=== PATIENT | male | born 1950 | race Caucasian/White ===

== ENCOUNTER 2017-04-15 07:07 | Day surgery (SDC) | payer MEDICARE, BC ==
[2017-04-15] MEDS ORDERED: Propofol 200 MG/20 ML SDV ONE (07:20)
[2017-04-15] MEDS ORDERED: fentaNYL 100 MCG/2 ML SDV ONE (07:20)
[2017-04-15] MEDS ORDERED: Midazolam 1 MG/ML 2 ML SDV ONE (07:21)
[2017-04-15] MEDS ORDERED: Lactated Ringers 1,000 ML IV SCH (07:30)
[2017-04-15 10:29] VITALS: BP 101/67
--- NOTE | 2017-04-15 14:58 | OR ---
DATE OF PROCEDURE: 04/15/2017 PREOPERATIVE DIAGNOSIS: History of colon polyps. POSTOPERATIVE DIAGNOSIS: Diverticulosis, history of colon polyps. PROCEDURE: Colonoscopy to the cecum. ANESTHESIA: IV anesthesia with monitored anesthesia care. INDICATIONS: This 67-year-old white male is referred for a colonoscopy because of a history of multiple colon polyps. His last colonoscopic exam he says was done a year ago. I counseled him for the procedure including risks and alternatives, and he gave his informed consent to proceed. DESCRIPTION OF PROCEDURE: The patient was placed in the left lateral decubitus position. IV anesthesia was administered by the Anesthesia Service. Time-out was held. A rectal exam was performed, which was unremarkable. The flexible video Olympus colonoscope was introduced through his anus, up his rectum, and out his colon all the way to the cecum. Once the cecum was reached, the scope was slowly withdrawn, examining the mucosa throughout. We saw multiple left and sigmoid colon diverticula. There was no bleeding or inflammation associated with them. The scope was retroflexed in the rectum with the distal rectum appearing unremarkable. We saw no neoplastic lesions. The scope was then removed. He tolerated the procedure well. Ever Arce MD /[id number]
== END 2017-04-15 10:46 | disposition home or self-care (01) ==
LOC: JP.SDS 07:07
PROVIDERS: ATTEND Surgery
DX: Z09 Encounter for follow-up examination after completed treatment for conditions other than malignant neoplasm (principal); K57.30 Diverticulosis of large intestine without perforation or abscess without bleeding; Z88.8 Allergy status to other drugs, medicaments and biological substances; Z91.030 Bee allergy status; Z91.048 Other nonmedicinal substance allergy status; Z86.010 Personal history of colon polyps
CPT/HCPCS: 45378; J2250; J2704; J3010; J7120

== ENCOUNTER 2020-05-12 06:23 | Day surgery (SDC) | payer MEDICARE, BC ==
[2020-05-12] MEDS ORDERED: Midazolam 1 MG/ML 2 ML SDV ONE (07:20)
[2020-05-12] MEDS ORDERED: Propofol 200 MG/20 ML SDV ONE (07:20)
[2020-05-12] MEDS ORDERED: fentaNYL 100 MCG/2 ML SDV ONE (07:20)
[2020-05-12] MEDS ORDERED: Dextrose 5%-Lactated Ringers 1,000 ML IV SCH (07:30)
[2020-05-12] MEDS ORDERED: Sodium Chloride 0.9% 1,000 ML IV SCH (07:30)
[2020-05-12 09:35] VITALS: BP 130/73; PULSE 81
--- NOTE | 2020-05-12 14:01 | OR ---
DATE OF PROCEDURE: 05/12/2020 SURGEON: Swapnil Lambert MD PROCEDURE: Colonoscopy. FINDINGS: 1. Ascending colon polyp #1, completely removed using hot snare wire device. 2. Ascending colon polyp #2, approximately 5 mm, completely removed using cold biopsy forceps. 3. Transverse colon polyp #1, approximately 5 mm, completely removed using cold biopsy forceps. 4. Transverse colon polyp #2, approximately 5 mm, completely removed using cold biopsy forceps. 5. Descending colon polyp #1, approximately 5 mm, completely removed using cold biopsy forceps. 6. Diverticulosis, extensive in the sigmoid colon, throughout the entire colon was noted. COMPLICATIONS: None. CREDIT ANALYST: None. PREOPERATIVE DIAGNOSIS: History of colon polyps. POSTOPERATIVE DIAGNOSIS: History of colon polyps. RISKS: Risks, benefits, alternatives, and limitations including, but not limited to, infection, bleeding, and perforation were explained to the patient who wished to proceed. DESCRIPTION OF PROCEDURE: The patient was placed in left lateral decubitus position. Digital rectal exam was performed without abnormality. Scope was introduced and advanced atraumatically to the ileocecal valve. Scope was brought back through the colon. Aforementioned polyps were all identified and completely removed. The one in the ascending #1 was approximately 1 to 1.5 cm and was removed completely. There was no abnormal bleeding after removal. Diverticulosis described as moderate to severe with dense concentration in the sigmoid colon, but noted throughout the entire colon without evidence of diverticulitis or bleeding. No abnormalities on retroflexion. The patient tolerated the procedure well. Swapnil Lambert MD /[id number]
== END 2020-05-12 10:15 | disposition home or self-care (01) ==
LOC: JP.SDS 06:23
PROVIDERS: ATTEND Surgery
DX: Z12.11 Encounter for screening for malignant neoplasm of colon (principal); D12.2 Benign neoplasm of ascending colon; D12.4 Benign neoplasm of descending colon; D12.3 Benign neoplasm of transverse colon; K57.30 Diverticulosis of large intestine without perforation or abscess without bleeding; N18.30 Chronic kidney disease, stage 3 unspecified; E11.22 Type 2 diabetes mellitus with diabetic chronic kidney disease; G47.33 Obstructive sleep apnea (adult) (pediatric); Z99.89 Dependence on other enabling machines and devices; I13.10 Hypertensive heart and chronic kidney disease without heart failure, with stage 1 through stage 4 chronic kidney disease, or unspecified chronic kidney disease; I43 Cardiomyopathy in diseases classified elsewhere; Z86.010 Personal history of colon polyps
CPT/HCPCS: 45380; 45385; J2250; J2704; J3010; J7121; 88305

== ENCOUNTER 2021-08-27 08:50 | Day surgery (SDC) | payer MEDICARE, BC ==
[~2021-08-27 08:50] MED LIST: Midazolam 1 MG/ML 2 ML SDV ONE; Propofol 200 MG/20 ML SDV ONE; fentaNYL 100 MCG/2 ML SDV ONE
[2021-08-27] MEDS ORDERED: Dextrose 5%-Lactated Ringers 1,000 ML IV SCH (09:15)
[2021-08-27] MEDS ORDERED: Sodium Chloride 0.9% 1,000 ML IV SCH (10:00)
[2021-08-27 11:20] VITALS: BP 132/79; PULSE 85
== END 2021-08-27 11:26 | disposition home or self-care (01) ==
LOC: JP.SDS 08:50
PROVIDERS: ATTEND Surgery
DX: Z12.11 Encounter for screening for malignant neoplasm of colon (principal); D12.2 Benign neoplasm of ascending colon; D12.4 Benign neoplasm of descending colon; D12.5 Benign neoplasm of sigmoid colon; G47.33 Obstructive sleep apnea (adult) (pediatric); K57.30 Diverticulosis of large intestine without perforation or abscess without bleeding; E11.22 Type 2 diabetes mellitus with diabetic chronic kidney disease; I12.9 Hypertensive chronic kidney disease with stage 1 through stage 4 chronic kidney disease, or unspecified chronic kidney disease; N18.9 Chronic kidney disease, unspecified; I25.10 Atherosclerotic heart disease of native coronary artery without angina pectoris
CPT/HCPCS: J2250; J2704; J3010; J7121

== ENCOUNTER 2024-05-17 08:13 | Day surgery (SDC) | payer MEDICARE, BC ==
[2024-05-17] MEDS: Lactated Ringers 1,000 ML IV SCH (09:14)
[2024-05-17] MEDS ORDERED: fentaNYL 50 MCG/ML SDV ONE (09:51)
[2024-05-17] MEDS ORDERED: Propofol 200 MG/20 ML SDV ONE ×2 (09:51→10:36)
[2024-05-17 11:38] VITALS: PULSE 71
[2024-05-17 11:51] VITALS: BP 136/85
== END 2024-05-17 12:01 | disposition home or self-care (01) ==
LOC: JP.SDS 08:13
PROVIDERS: ATTEND Surgery
DX: Z12.11 Encounter for screening for malignant neoplasm of colon (principal); K57.30 Diverticulosis of large intestine without perforation or abscess without bleeding; N18.30 Chronic kidney disease, stage 3 unspecified; Z86.0100 Personal history of colon polyps, unspecified
CPT/HCPCS: G0105; J2704; J3010; J7120